=== PATIENT | male | born 1985 | race Caucasian/White ===

== ENCOUNTER 2023-03-31 14:35 | Outpatient (REF) | payer MEDICAID, SELFPAY ==
[2023-03-31 18:11] LABS: Influenza A PCR NEGATIVE (Negative); Influenza B PCR NEGATIVE (Negative); Resp Syncy Virus RNA Qual PCR NEGATIVE (Negative); SARS COV2 PCR INHOUSE NEGATIVE (Negative)
== END 2023-03-31 14:36 | disposition home or self-care (01) ==
LOC: HO.LNP 14:35
PROVIDERS: Visit Provider Nurse Practitioner Family
DX: Z20.822 Contact with and (suspected) exposure to COVID-19 (principal); R09.89 Other specified symptoms and signs involving the circulatory and respiratory systems
CPT/HCPCS: 0241U